=== PATIENT | female | born 1950 | race Caucasian/White ===

== ENCOUNTER 2016-08-17 21:03 | Observation (INO) | payer MEDICARE ==
[~2016-08-17] VITALS: Ht 167.6 cm; Wt 109.0 kg
[~2016-08-17 21:03] MED LIST: ALBU.5I INH; ERGO50000 PO; HYDR10TA16 PO; LIPI40TA PO; OMEP20CA5 PO; OXYB5TAB PO; TAB-TAB PO; TEMA15CA PO
[2016-08-17] MEDS ORDERED: SODIUM CHLORIDE 0.9% FLUSH 10 ML FLUSH IVF PRN (21:15)
[2016-08-17] MEDS ORDERED: RESP: ALBUTEROL 2.5 MG/IPRATROPIUM 0.5 MG NEB (SCH) INH ONE (21:15)
[2016-08-17 21:20] VITALS: BP 106/72; PULSE 98; RESP 24; TEMP 98.1; O2SAT 97
--- NOTE | 2016-08-17 21:20 | PD ---
HPI Chief Complaint: short of breath Time Seen by Provider: 21:15 Travel History International Travel<30 days: No Contact w/Intl Traveler<30days: No Traveled to known affect area: No History of Present Illness HPI 66-year-old female with history of a for lung cancer on hospice is brought into the emergency department via EMS with increasing shortness of breath. Patient is O2 dependent on home O2 of 3 L/m per nasal cannula. Patient was given 100 mg Lasix by the EMS. Patient denies pain, fever, or other constitutional symptoms. Patient states that she did not what to come here but came because her son was concerned. Patient has failed chemotherapy and radiation, and is currently a hospice patient. She denies lower extremity pain or cramping. She currently is speaking in full sentences and has no significant shortness of breath at this time. She has no known drug allergies. 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 ) Pacemaker: No Other Surgery: Yes (BREAST BIOPSY - NEGATIVE) Social History Alcohol Use: No Tobacco Use: No (QUIT JAN 2003) Substance Use: No Allergies-Medications (Allergen,Severity, Reaction): Coded Allergies: No Known Allergies (Verified , 08/17/16) Reported Meds & Prescriptions Reported Meds & Active Scripts Active Reported Lortab 10/500 (Acetaminophen/Hydrocodone Bitart) 10 Mg/500 Mg Tab 1 Tab PO Q4HPRN FOR PAIN Proventil Conc Ud 0.5% (2.5 Mg/0.5 Ml) (Albuterol Sulfate) 2.5 Mg/0.5 Ml Inha 2.5 Mg INH BID Vitamin D / Drisdol (Ergocalciferol) 50,000 Units Cap 1 Cap PO WEEKLY Temazepam 15 Mg Cap 15 Mg PO HSPRN Multivitamin (Multivitamins) 1 Tab Tab 1 Tab PO DAILY Oxybutynin Chloride 5 Mg Tab 10 Mg PO DAILY Prilosec (Omeprazole) 20 Mg Capcr 40 Mg PO DAILY Lipitor (Atorvastatin Calcium) 40 Mg Tab 40 Mg PO DAILY Review of Systems Except as stated in HPI: all other systems reviewed are Neg General / Constitutional: No: Fever Eyes: No: Visual changes HENT: No: Headaches, Sore Throat, Rhinitis, Rhinorrhea, Congestion, Neck Stiffness, Neck Pain, Earache Cardiovascular: No: Chest Pain or Discomfort Respiratory: Positive: Cough, Shortness of Breath, No: Wheezing, Hemoptysis, Night Sweats, Pleuritic Pain Gastrointestinal: No: Nausea, Vomiting, Diarrhea, Abdominal Pain Genitourinary: No: Dysuria Musculoskeletal: No: Pain Skin: No Rash Neurologic: No: Weakness Psychiatric: No: Depression Endocrine: No: Polydipsia Hematologic/Lymphatic: No: Easy Bruising Physical Exam Narrative GENERAL: Patient appears in no acute distress. SKIN: Warm and dry. Mild pallor. Normal turgor. HEAD: Atraumatic. Normocephalic. EYES: Pupils equal and round. No scleral icterus. No injection or drainage. ENT: No nasal bleeding or discharge. Mucous membranes pink and somewhat dry. Pharynx is clear. Airway is patent. NECK: Trachea midline. Supple nontender. CARDIOVASCULAR: Regular rate and rhythm. No murmurs gallops or rubs. RESPIRATORY: No accessory muscle use. Coarse breath sounds to auscultation. Breath sounds equal bilaterally. GASTROINTESTINAL: Abdomen soft, non-tender, nondistended. Hepatic and splenic margins not palpable. MUSCULOSKELETAL: Extremities without clubbing, cyanosis, or 2+ pitting edema bilaterally in the lower extremities. No obvious deformities. NEUROLOGICAL: Awake and alert. No obvious cranial nerve deficits. Motor grossly within normal limits. Five out of 5 muscle strength in the arms and legs. Normal speech. PSYCHIATRIC: Appropriate mood and affect; insight and judgment normal. Data Data Last Documented VS Vital Signs Date Time Temp Pulse Resp B/P Pulse Ox O2 Delivery O2 Flow Rate FiO2 08/17/16 22:23 96 Nasal Cannula 3.00 08/17/16 21:28 90 08/17/16 21:20 98.1 24 106/72 Orders Complete Blood Count With Diff (08/17/16 21:14) Comprehensive Metabolic Panel (08/17/16 21:14) B-Type Natriuretic Peptide (08/17/16 21:14) Urinalysis - C+S If Indicated (08/17/16 21:14) Iv Access Insert/Monitor (08/17/16 21:14) Electrocardiogram (08/17/16 21:14) Ecg Monitoring (08/17/16 21:14) Oximetry (08/17/16 21:14) Oxygen Administration (08/17/16 21:14) Chest, Single Ap (08/17/16 21:14) Sodium Chloride 0.9% Flush (Ns Flush) (08/17/16 21:15) Albuterol-Ipratropium Neb (Duoneb Neb) (08/17/16 21:15) Urine Culture (08/17/16 21:40) ^ Other Nursing Orders (08/17/16 23:02) Resp Respiratory Parameters (08/17/16 ) Potassium Chloride Eff (K-Lyte Cl Eff) (08/17/16 23:15) Potassium Chlor 20 Meq Premix (Kcl 20 Me (08/17/16 23:15) Admit Order (Ed Use Only) (08/17/16 23:05) Labs Laboratory Tests Test 08/17/16 21:40 White Blood Count 11.1 TH/MM3 Red Blood Count 4.01 MIL/MM3 Hemoglobin 12.2 GM/DL Hematocrit 37.1 % Mean Corpuscular Volume 92.4 FL Mean Corpuscular Hemoglobin 30.4 PG Mean Corpuscular Hemoglobin 32.9 % Concent Red Cell Distribution Width 16.2 % Platelet Count 224 TH/MM3 Mean Platelet Volume 8.3 FL Neutrophils (%) (Auto) 86.4 % Lymphocytes (%) (Auto) 8.9 % Monocytes (%) (Auto) 4.4 % Eosinophils (%) (Auto) 0.1 % Basophils (%) (Auto) 0.2 % Neutrophils # (Auto) 9.6 TH/MM3 Lymphocytes # (Auto) 1.0 TH/MM3 Monocytes # (Auto) 0.5 TH/MM3 Eosinophils # (Auto) 0.0 TH/MM3 Basophils # (Auto) 0.0 TH/MM3 CBC Comment DIFF FINAL Differential Comment Urine Color YELLOW Urine Turbidity CLOUDY Urine pH 5.5 Urine Specific [place] 1.015 Urine Protein 30 mg/dL Urine Glucose (UA) NEG mg/dL Urine Ketones NEG mg/dL Urine Occult Blood SMALL Urine Nitrite POS Urine Bilirubin NEG Urine Urobilinogen LESS THAN 2.0 MG/DL Urine Leukocyte Esterase LARGE Urine RBC 57 /hpf Urine WBC /hpf Urine Squamous Epithelial 7 /hpf Cells Urine Transitional Epithelial 1 /hpf Cells Urine Bacteria MANY /hpf Urine Hyaline Casts 159 /lpf Urine Mucus FEW /lpf Urine Yeast (Budding) MANY Microscopic Urinalysis Comment CULTURE INDICATED Sodium Level 132 MEQ/L Potassium Level 2.2 MEQ/L Chloride Level 75 MEQ/L Carbon Dioxide Level GREATER THAN 45.0 MEQ/L Anion Gap 12 MEQ/L Blood Urea Nitrogen 38 MG/DL Creatinine 1.15 MG/DL Estimat Glomerular Filtration 48 ML/MIN Rate Random Glucose 118 MG/DL Calcium Level 8.1 MG/DL Total Bilirubin 0.6 MG/DL Aspartate Amino Transf 38 U/L (AST/SGOT) Alanine Aminotransferase 39 U/L (ALT/SGPT) Alkaline Phosphatase 122 U/L B-Type Natriuretic Peptide 92 PG/ML Total Protein 6.3 GM/DL Albumin 2.6 GM/DL [facility] Medical Decision Making Medical Screen Exam Complete: Yes Emergency Medical Condition: Yes Medical Record Reviewed: Yes Differential Diagnosis Possible pleural effusion. CHF. Shortness of breath secondary to lung cancer. Narrative Course Patient is medically stable at time of exam. Labs ordered including CBC, CMP, pro-BMP, and urinalysis. Patient as arty received 100 mg of Lasix IV prior to arrival. Patient is maintained on 3 L O2 nasal cannula. CBC shows slight leukocytosis of 11.1. Chemistry shows sodium of 132, potassium 2.2, chloride of 75, O2 greater than 45. BUN is 38, creatinine is 1.15, random glucose is 118, calcium is 8.1. AST is 38, alkaline phosphatase is 122, total protein is 6.3 and albumin is 2.8. Urinalysis shows small amount of occult blood and positive nitrites, as well as large leukocyte esterase, 57 RBCs per high-power field and many bacteria and many yeast. Patient has an indwelling catheter. Chest x-ray and EKG are ordered. Chest x-ray shows large left-sided pleural effusion. Patient is discussed with and seen with Dr. Espinal. Dr. Espinal recommends admission and thoracentesis for symptomatic relief as well as treatment of her hyper ketonemia. 2230 hours call was placed to Dr. Iverson discussed the patient for admission. [address] Iverson, but patient's family [facility] hospitalist patient. Call was placed to [facility] hospitalist and patient was discussed with Scott ZHOU. Who agreed to admit the patient. Diagnosis Primary Impression: Pleural effusion Additional Impressions: Hypokalemia Urinary tract infection associated with indwelling urethral catheter Qualified Code: T83.511A - Urinary tract infection associated with indwelling urethral catheter, initial encounter Admitting Information Admitting Physician Requests: Observation Condition: Stable Presley Bynum August 17, 2016 21:20
[2016-08-17 21:28] VITALS: PULSE 90
[2016-08-17 22:08] LABS: AUTOMATED NEUTROPHIL # 9.6 TH/MM3 (1.8-7.7); BASOPHIL % 0.2 % (0.0-2.0); EOSINOPHIL % 0.1 % (0.0-4.0); HEMATOCRIT 37.1 % (35.0-46.0); HEMO FLAGS DIFF FINAL; LYMPH % 8.9 % (9.0-44.0); MEAN CELL VOLUME 92.4 FL (80.0-100.0); MEAN CORPUSCULAR HEMOGLOBIN 30.4 PG (27.0-34.0); MEAN CORPUSCULAR HGB CONC 32.9 % (32.0-36.0); MONO % 4.4 % (0.0-8.0); NEUT % 86.4 % (16.0-70.0); PLATELET COUNT 224 TH/MM3 (150-450); RED BLOOD COUNT 4.01 MIL/MM3 (4.00-5.30); RED CELL DISTRIBUTION WIDTH 16.2 % (11.6-17.2); WHITE BLOOD COUNT 11.1 TH/MM3 (4.0-11.0)
--- NOTE | 2016-08-17 22:13 | RADRPT ---
EXAM DATE/TIME: 08/17/2016 21:25 [facility] COMPARISON: CHEST SINGLE AP, April 30, 2012, 13:27. INDICATIONS : Shortness of breath. MEDICAL HISTORY : Carcinoma, lung. Chronic obstructive pulmonary disease. SURGICAL HISTORY : Pneumonectomy, Infusaport ENCOUNTER: Initial ACUITY: 1 month PAIN SCORE: 4/10 LOCATION: Bilateral chest FINDINGS: A single portable frontal view the chest shows complete opacification left hemithorax. The heart is s hifted towards that side. The right lung is hyperinflated. A right-sided Port-A-Cath noted. No effusi on on the right. CONCLUSION: Prior left pneumonectomy. Clear right lung. Gerardo Bourne Jr., MD on August 17, 2016 at 22:11 Board Certified Radiologist. This report was verified electronically.
[2016-08-17 22:16] LABS: BACTERIA, URINE MANY /hpf; BLOOD, URINE SMALL (NEG); COMMENT (UR) CULTURE INDICATED; CULTURE IF INDICATED CULTURE INDICATED; GLUCOSE,URINE NEG (NEG); HYALINE CAST, URINE 159 /lpf (RARE); KETONE, URINE NEG (NEG); MUCUS URINE FEW /lpf (OCC); PH, URINE 5.5 (5.0-8.5); SQUAMOUS EPITHELIAL CELL URINE 7 /hpf (0-5); TRANSITIONAL EPI CELLS, URINE 1 /hpf; URINE COLOR YELLOW (YELLW/STRAW)
[2016-08-17 22:17] LABS: NITRITE,URINE POS (NEG)
[2016-08-17 22:23] VITALS: O2SAT 96
[2016-08-17 22:29] LABS: ALKALINE PHOSPHATASE 122 U/L (45-117); ALT (GPT) 39 U/L (10-53); ANION GAP 12 MEQ/L (5-15); AST (GOT) 38 U/L (15-37); BICARBONATE GREATER THAN 45.0 MEQ/L (21.0-32.0); BLOOD UREA NITROGEN 38 MG/DL (7-18); CHLORIDE 75 MEQ/L (98-107); GLOMERULAR FILTRATION RATE 48 ML/MIN (>89); SODIUM (NA) 132 MEQ/L (136-145); TOTAL BILIRUBIN ADULT 0.6 MG/DL (0.2-1.0)
[2016-08-17 22:31] LABS: POTASSIUM 2.2 MEQ/L (3.5-5.1)
[2016-08-17] MEDS ORDERED: POTASSIUM CHLORIDE 25 MEQ EFFERVESCENT TAB PO ONE (23:15)
[2016-08-17] MEDS ORDERED: CIPROFLOXACIN 500 MG TAB PO ONE (23:15)
[2016-08-17] MEDS: POTASSIUM CHLOR 20 MEQ PREMIX 100 ML IV SCH (23:44)
[2016-08-17 23:45] VITALS: BP 130/76; PULSE 91; RESP 24; O2SAT 96
[2016-08-18] VITALS (10 sets, daily range): BP systolic 92–131; BP diastolic 46–72; PULSE 65–120; RESP 17–24; TEMP 97–98.6; O2SAT 92–99
[2016-08-18] MEDS ORDERED: SODIUM CHLORIDE 0.9% FLUSH 10 ML FLUSH IV FLUSH PRN (00:30)
[2016-08-18] MEDS: POTASSIUM CHLOR 20 MEQ PREMIX 100 ML IV SCH ×3 (00:30→02:30)
[2016-08-18] MEDS ORDERED: ONDANSETRON HCL 4 MG/2 ML VIAL IVP PRN (00:30)
[2016-08-18] MEDS ORDERED: MAGNESIUM HYDROXIDE SUSP 30 ML CUP PO PRN (00:30)
[2016-08-18] MEDS ORDERED: NALOXONE HCL 0.4 MG/ML AMP IV PRN (00:30)
[2016-08-18] MEDS ORDERED: SENNOSIDES 8.6 MG TAB PO PRN (00:30)
[2016-08-18] MEDS ORDERED: ACETAMINOPHEN 325 MG TAB PO PRN (00:30)
--- NOTE | 2016-08-18 08:26 | RADRPT ---
EXAM DATE/TIME: 08/17/2016 23:53 [facility] COMPARISON: No previous studies available for comparison. INDICATIONS : Pleural effusion. MEDICAL HISTORY : Hypercholesterolemia. Gastroesophageal reflux disease. Myocardial infarction. Ruptured brain aneurysm . Cerebrovascular accident. Congestive heart failure. Chronic obstructive pulmonary disorder. Ulcerat nakia colitis. Metastatic lung cancer. Ectopic . . Arthritis. Depression. Measles. SURGICAL HISTORY : Tubal ligation. section. Gastric bypass. 1/3 lung lobectomy. Right chest port. ENCOUNTER: Initial ACUITY: 1 day PAIN SCORE: 4/10 LOCATION: Left chest MEASUREMENTS: SKIN TO PARIETAL PLEURA: 1.9 cm SKIN TO MAX SAFE DEPTH: 5.4 cm ESTIMATED FLUID VOLUME: 499 cc FLUID COMPOSITION: simple FINDINGS: Pleural effusion as above. A peter was placed on the skin surface superficial to the pleural fluid col lection. CONCLUSION: Left pleural effusion marked for thoracentesis Scott Will MD on August 18, 2016 at 1:36 Board Certified Radiologist. This report was verified electronically.
--- NOTE | 2016-08-18 08:34 | MH ---
cc: MEGHA FINCH MD DATE OF ADMISSION: 08/17/2016 DATE OF : 1950 TRAVEL IN THE LAST 30 DAYS None. CHIEF COMPLAINT Shortness of breath. HISTORY OF PRESENT ILLNESS This is an unfortunate 66-year-old female who is currently on [facility] for management of her lung cancer. The patient started having symptoms of shortness of breath and even though she was not having pain her shortness of breath was causing her undue symptoms. She came to the hospital for symptom management and is currently set up for a drain of her left lung today per interventional radiology. The patient states that she had this done approximately a week ago and did get some relief. The patient denies any extreme pain. She is drowsy but she responds very weakly to verbal stimuli. The patient was given 100 mg of Lasix by EMS. The patient was also noted to be severely hypokalemic and has received multiple IV doses and p.o. dose of potassium which is still infusing. According to the record the patient has failed chemo and radiation treatment. The patient is a DNR/do not intubate. PAST MEDICAL HISTORY According to the record: 1. Hyperlipidemia. 2. History of chest pain. 3. Congestive heart failure. 4. Lung cancer. 5. Depression. 6. CVA in 2002. 7. COPD. 8. GERD. 9. Urinary frequency. 10. Headaches. 11. Hypertension. 12. Ruptured brain aneurysm. 13. Comatose for 39 days in 2002. 14. MO. PAST SURGICAL HISTORY 1. Gastric pass. 2. Cerebral . 3. C-sections x2. 4. Bilateral cataract implants. 5. Breast biopsy. 6. Tubal ligation. ALLERGIES No known allergies. MEDICATIONS 1. Lortab. 2. Proventil. 3. Vitamin-D. 4. Temazepam. 5. Multivitamins. 6. Oxybutynin. 7. Prilosec. 8. Lipitor. SOCIAL HISTORY Previous tobacco user, quit in 2002. No alcohol. No illicit drugs. FAMILY HISTORY The patient does have a son who is involved in her care. REVIEW OF SYSTEMS Minimal response due to lethargy and generalized weakness. She does deny any pain. She is positive for some mild shortness of breath. PHYSICAL EXAMINATION VITAL SIGNS: Temperature 98.3. Pulse labile between 66 and 100. Respirations between 18 and 24. Blood pressure 96/54, on admission 130/76. O2 sat 92; currently on nasal cannula at three liters. PHYSICAL EXAMINATION GENERAL: Pale, lethargic female, looks to be her stated age resting in the bed. SKIN: Very pale, warm and dry. Turgor is fair. HEENT: Atraumatic, normocephalic. No scleral icterus. PERRLA. Mucous membranes are dry and pale. NECK: Trachea is midline. Airway is patent. CARDIOVASCULAR: S1, S2. Distant heart sounds but no murmurs, rubs or gallops. PULMONARY: She does have a minimal amount of rhonchi. The right lung is essentially clear. The left lung has absent to decreased breath sounds. ABDOMEN: Round, soft. Hypoactive bowel sounds. EXTREMITIES: Very weak. Bilateral lower extremity edema, 2-3+. Some generalized edema in her upper extremities, trace to 1+. : Garay catheter draining yellow cloudy urine. NEUROLOGIC: She is very drowsy and lethargic but does respond softly to verbal stimuli. PSYCHIATRIC: Mood and affect is flat. Judgment appears to be normal. LABORATORY WBC count 11.1, RBC 4.01, hemoglobin 12.2, hematocrit 37.1. Neutrophil percentage auto 86.4, lymphocyte 8.9. Sodium 132, potassium 2.2, chloride 75, carbon dioxide greater than 45, amnion gap 12, BUN 38, creatinine 1.15, GFR 48, random glucose 118, calcium 8.1, magnesium 1.7. AST 38, alkaline phosphatase 122, total protein 6.3, albumin 2.6. Urine is yellow, cloudy, pH 5.5, specific gravity 1.015, protein 30, positive nitrites, small occult blood, negative glucose, negative ketones and bilirubin, many bacteria, leukocyte esterase large, urobilinogen less than 2. Culture is indicated. IMAGING Chest x-ray shows clear on the right, prior left pneumonectomy. ASSESSMENT 1. Left pleural effusion. 2. History of lung cancer. 3. Hypokalemia, severe. 4. Urinary tract infection. 5. Acute kidney injury, mild, which is probable dehydration. 6. Leukocytosis, mild. PLAN 1. Admit for observation. 2. Monitor vital signs q.4h. 3. Out of bed only with assistance. 4. Regular diet if patient is able to tolerate after any procedures. 5. Ultrasound-guided thoracentesis to assist in her symptoms of shortness of breath. 6. IV potassium and p.o. potassium given. After those doses are complete will recheck her potassium level. 7. The patient received p.o. Cipro for treatment of her UTI. 8. O2 per nasal cannula. 9. Albuterol one time was given in the emergency room. 10. Will reconcile her medications. 11. Monitor for pain management. 12. Follow-up with [facility] for a social visit and an update on her symptom management. 13. The patient is a DNR/DNI. 14. Will give her and her family supportive care during this brief stay, and discharge planning will hopefully be back with Hospice within a short period of time after her symptoms are managed. Dictated by: ISH Harding MD LISSETTE Dc/KRISTOFER /7:49 AM /8:08 AM
--- NOTE | 2016-08-18 08:55 | EKG ---
Date Performed: 08/18/2016 Time Performed: 00:49:49 PTAGE: 66 years EKG: SINUS TACHYCARDIA WITH FREQUENT VENTRICULAR PREMATURE COMPLEXES INDETERMINATE AXIS LOW QRS VOLTAGE IN PRECORDIAL LEADS INCOMPLETE RIGHT BUNDLE BRANCH BLOCK NONSPECIFIC T-WAVE ABNORMALITY ABNOR MAL RHYTHM ECG PREVIOUS TRACING : 04/19/2012 11.20 DOCTOR: Tavo Horan Interpretating Date/Time 08/18/2016 08:53:15
[2016-08-18] MEDS ORDERED: CIPROFLOXACIN 500 MG TAB PO SCH (09:00)
[2016-08-18] MEDS ORDERED: SODIUM CHLORIDE 0.9% FLUSH 10 ML FLUSH IV FLUSH SCH (09:00)
--- NOTE | 2016-08-18 13:47 | HHI.PR ---
Objective Objective Results - Vital Signs Date Time Temp Pulse Resp B/P Pulse Ox O2 Delivery O2 Flow Rate FiO2 08/18/16 11:51 98.0 93 17 92/46 95 08/18/16 07:44 93 Nasal Cannula 3.00 08/18/16 07:24 98.3 100 20 96/54 92 08/18/16 04:33 98.6 66 18 108/64 97 08/18/16 02:08 98.5 89 18 113/59 92 08/17/16 23:45 91 24 130/76 96 Nasal Cannula 3 08/17/16 22:23 96 Nasal Cannula 3.00 08/17/16 21:28 90 08/17/16 21:28 97 Nasal Cannula 3 08/17/16 21:20 98.1 98 24 106/72 97 I/O 08/17/16 08/17/16 08/17/16 08/18/16 08/18/16 08/18/16 07:00 15:00 23:00 07:00 15:00 23:00 Intake Total 200 ml Balance 200 ml Intake Oral 200 ml Result Diagram: 08/17/16213908/[id number]/162139 Other Results Laboratory Tests Test 08/17/16 08/18/16 08/18/16 21:40 10:20 12:42 White Blood Count 11.1 Red Blood Count 4.01 Hemoglobin 12.2 Hematocrit 37.1 Mean Corpuscular Volume 92.4 Mean Corpuscular Hemoglobin 30.4 Mean Corpuscular Hemoglobin 32.9 Concent Red Cell Distribution Width 16.2 Platelet Count 224 Mean Platelet Volume 8.3 Neutrophils (%) (Auto) 86.4 Lymphocytes (%) (Auto) 8.9 Monocytes (%) (Auto) 4.4 Eosinophils (%) (Auto) 0.1 Basophils (%) (Auto) 0.2 Neutrophils # (Auto) 9.6 Lymphocytes # (Auto) 1.0 Monocytes # (Auto) 0.5 Eosinophils # (Auto) 0.0 Basophils # (Auto) 0.0 CBC Comment DIFF FINAL Differential Comment Urine Color YELLOW Urine Turbidity CLOUDY Urine pH 5.5 Urine Specific [place] 1.015 Urine Protein 30 Urine Glucose (UA) NEG Urine Ketones NEG Urine Occult Blood SMALL Urine Nitrite POS Urine Bilirubin NEG Urine Urobilinogen LESS THAN 2.0 Urine Leukocyte Esterase LARGE Urine RBC 57 Urine WBC Urine Squamous Epithelial 7 Cells Urine Transitional Epithelial 1 Cells Urine Bacteria MANY Urine Hyaline Casts 159 Urine Mucus FEW Urine Yeast (Budding) MANY Microscopic Urinalysis Comment CULTURE INDICATED Sodium Level 132 Potassium Level 2.2 Chloride Level 75 Carbon Dioxide Level GREATER THAN 45.0 Anion Gap 12 Blood Urea Nitrogen 38 Creatinine 1.15 Estimat Glomerular Filtration 48 Rate Random Glucose 118 Calcium Level 8.1 Total Bilirubin 0.6 Aspartate Amino Transf 38 (AST/SGOT) Alanine Aminotransferase 39 (ALT/SGPT) Alkaline Phosphatase 122 B-Type Natriuretic Peptide 92 Total Protein 6.3 Albumin 2.6 Magnesium Level 1.7 1.7 Prothrombin Time 11.0 Prothromb Time International 1.0 Ratio Date/Time Procedure Status Source Growth 08/17/16 21:40 Urine Culture Received Urine Clean Catch Pending Physical Exam Physical Exam PHYSICAL EXAMINATION GENERAL: This is a well-developed, well-nourished female who appears to be in no acute distress. She is alert and awake, []. HEAD: Normocephalic without any lesion or mass noted. Facial features appear symmetric. EYES: Perrla, Normal eye movement, [] Icterus. [] Conj congestion. OROPHARYNGEAL: Oropharynx without erythema or edema. MOUTH/THROAT: Tongue midline []. Buccal mucosa is moist []. NECK: Supple. No nuchal rigidity or lymphadenopathy. Trachea midline without deviation. Thyroid not palpable, no bruits appreciated. CARDIAC: Regular rhythm, regular rate, S1 and S2 are heard. Murmur []; no gallops or rubs. LUNGS: Clear to auscultation bilaterally. [] wheeze, [] rhonchi or [] rale. No use of accessory muscles on inspiration or expiration. ABDOMEN: Soft, nontender, no organomegaly or masses. Bowel sounds are heard in all four quadrants. No rebound. No guarding. EXTREMITIES: [] edema. Pulses equal bilateral. [] cyanosis. NEUROLOGICAL: Patient mood and affect appropriate. Cranial nerves II through XII grossly intact. Muscle strength 5/5 in the upper and lower extremities bilaterally. Deep tendon reflexes are 2+ in the upper and lower extremities bilaterally. SKIN:Warm and moist PSYCH: Mood and affect appropriate A/P Assessment and Plan patient seen and examined Please refer to admission H & P for details 66 yr old female with stage 4 lung cancer, on hospice admitted with SOB, likely sec to left pleural effusion. Patient appears comfortable. plan for IR guided thoracentesis and then discharge to inpatient hospice or hospice care center. Hospice following discussed with patient's nurse, correctional case manager and Martina Moreland MD August 18, 2016 13:47
--- NOTE | 2016-08-18 15:44 | RADRPT ---
EXAM DATE/TIME: 08/18/2016 15:20 [facility] COMPARISON: No previous studies available for comparison. INDICATIONS : Post thoracentesis. MEDICAL HISTORY : Hypercholesterolemia. Gastroesophageal reflux disease. Myocardial infarction. Ruptured brain aneurysm . Cerebrovascular accident. Congestive heart failure. Chronic obstructive pulmonary disorder. Ulcerat nakia colitis. Metastatic lung cancer. SURGICAL HISTORY : Tubal ligation. section. Gastric bypass. 1/3 lung lobectomy. Right chest port. ENCOUNTER: Initial ACUITY: 1 day PAIN SCORE: 10/10 LOCATION: Left chest FINDINGS: There is consolidation in the left base. There is no pneumothorax. The right lung is clear. Infuse -a-Port is in good position. CONCLUSION: Persistent consolidation left base without pneumothorax. Sunny Barbosa MD FACR on August 18, 2016 at 15:39 Board Certified Radiologist. This report was verified electronically.
--- NOTE | 2016-08-18 16:56 | RADRPT ---
EXAM DATE/TIME: 08/18/2016 14:22 [facility] COMPARISON: No previous studies available for comparison. INDICATIONS : Pleural effusion. MEDICAL HISTORY : Myocardial infarction. Hypercholesterolemia. Congestive heart failure. CVA. Headache. Brain aneurysm. Dyspnea. Ulcer. IBS. Ulcerative colitis. GERD. Lung cancer. SURGICAL HISTORY : Tubal ligation. Bilateral cataract surgery. Coils brain due to aneurysm. Gastric bypass. D&C uteria n. Lung BX. Port placement. Breast BX. ENCOUNTER: Initial ACUITY: 1 day PAIN SCORE: 0/10 LOCATION: Left chest FLUID: Total volume of 1200 cc of clear, red fluid was removed. Fluid was discarded. Thoracentesis was therapeutic only. TECHNIQUE: 1. Ultrasound guidance for thoracentesis. 2. Thoracentesis. The risks, benefits, and alternatives to ultrasound guided thoracentesis were explained to the patien t in lay simple terms, including the risk of bleeding and infection. Written and verbal informed con sent was obtained. Appropriate area for thoracentesis was marked under ultrasound guidance with the patient in the uprig ht position. Overlying skin was prepped and draped in the usual sterile fashion and with local anest hetic, a dermatotomy was made with an 11 blade scalpel. A 6 Bengali thoracentesis catheter was placed in the pleural space and fluid was removed. Catheter was then removed and a sterile dressing applie d. There were no immediate complications. The patient tolerated the procedure well and the left the ultrasound suite in stable condition. Chest radiograph is to be obtained. CONCLUSION: Uncomplicated ultrasound guided thoracentesis. Sunny Barbosa MD FACR on August 18, 2016 at 16:54 Board Certified Radiologist. This report was verified electronically.
--- NOTE | 2016-08-18 18:29 | HHI.DS ---
Discharge Summary Admission Date August 17, 2016 at 23:07 Admitting Diagnosis Pleural Effusion/Hypokalemia/Stage 4 CA CBC/BMP: 08/17/16213908/17/162139 Significant Findings Laboratory Tests Test 08/17/16 21:40 Sodium Level 132 MEQ/L (136-145) Potassium Level 2.2 MEQ/L (3.5-5.1) Chloride Level 75 MEQ/L (98-107) Carbon Dioxide Level GREATER THAN 45.0 MEQ/L (21.0-32.0) Blood Urea Nitrogen 38 MG/DL (7-18) Creatinine 1.15 MG/DL (0.50-1.00) Estimat Glomerular Filtration 48 ML/MIN (>89) Rate Random Glucose 118 MG/DL (74-106) Calcium Level 8.1 MG/DL (8.5-10.1) Aspartate Amino Transf 38 U/L (15-37) (AST/SGOT) Alkaline Phosphatase 122 U/L (45-117) Total Protein 6.3 GM/DL (6.4-8.2) Albumin 2.6 GM/DL (3.4-5.0) White Blood Count 11.1 TH/MM3 (4.0-11.0) Neutrophils (%) (Auto) 86.4 % (16.0-70.0) Lymphocytes (%) (Auto) 8.9 % (9.0-44.0) Neutrophils # (Auto) 9.6 TH/MM3 (1.8-7.7) Urine Turbidity CLOUDY (CLEAR) Urine Protein 30 mg/dL (NEG-TRACE) Urine Occult Blood SMALL (NEG) Urine Nitrite POS (NEG) Urine Leukocyte Esterase LARGE (NEG) Urine RBC 57 /hpf (0-3) Urine Bacteria MANY /hpf (NONE) Urine Mucus FEW /lpf (OCC) Urine Yeast (Budding) MANY (NONE) Imaging Last Impressions Thoracentesis Ultrasound 08/18/16 0000 Signed Impressions: Service Date/Time: Thursday, August 18, 2016 14:22 - CONCLUSION: Uncomplicated ultrasound guided thoracentesis. Sunny Barbosa MD FACR Chest X-Ray 08/18/16 0000 Signed Impressions: Service Date/Time: Thursday, August 18, 2016 15:20 - CONCLUSION: Persistent consolidation left base without pneumothorax. Sunny Barbosa MD FACR Chest Ultrasound 08/17/16 0000 Signed Impressions: Service Date/Time: Wednesday, August 17, 2016 23:53 - CONCLUSION: Left pleural effusion marked for thoracentesis Scott Will MD Pt Condition on Discharge: Stable Discharge Disposition: Hospice/Med Facility Discharge Instructions DIET: Follow Instructions for: As Tolerated, No Restrictions Activities you can perform: Regular-No Restrictions Continued Medications: Albuterol Sulfate (Proventil Conc Ud 0.5% (2.5 Mg/0.5 Ml)) 2.5 Mg/0.5 Ml Inha 2.5 MG INH BID Ergocalciferol 50,000 Units (Vitamin D / Drisdol 50,000 Units) 50,000 Units Cap 1 CAP PO WEEKLY Multiple Vitamin (Multivitamin) 1 Tab Tab 1 TAB PO DAILY Omeprazole 20 mg (Prilosec 20 mg) 20 Mg Capcr 40 MG PO DAILY Oxybutynin Chloride (Oxybutynin Chloride Er) 5 Mg Tab 10 MG PO DAILY Temazepam (Temazepam) 15 Mg Cap 15 MG PO HSPRN Discontinued Medications: Atorvastatin Calcium (Lipitor) 40 Mg Tab 40 MG PO DAILY Ref 0 Hydrocodone-Acetaminophen (Lortab 10/500) 10 Mg/500 Mg Tab 1 TAB PO Q4HPRN FOR PAIN Janessa Robin August 18, 2016 18:29
== END 2016-08-18 19:00 | disposition hospice, inpatient (51) ==
LOC: NEPC 21:03 → NEDA 23:07 → NEPGCP 08-18 01:33
PROVIDERS: ADMIT Internal Medicine; ATTEND Internal Medicine
DX: J90 Pleural effusion, not elsewhere classified (principal); C34.90 Malignant neoplasm of unspecified part of unspecified bronchus or lung; D72.829 Elevated white blood cell count, unspecified; N39.0 Urinary tract infection, site not specified; N17.9 Acute kidney failure, unspecified; I25.2 Old myocardial infarction; E78.00 Pure hypercholesterolemia, unspecified; I11.0 Hypertensive heart disease with heart failure; I50.9 Heart failure, unspecified; K21.9 Gastro-esophageal reflux disease without esophagitis; M19.90 Unspecified osteoarthritis, unspecified site; F32.9 Major depressive disorder, single episode, unspecified; J44.9 Chronic obstructive pulmonary disease, unspecified; E87.6 Hypokalemia; E78.5 Hyperlipidemia, unspecified; Z87.891 Personal history of nicotine dependence; Z86.73 Personal history of transient ischemic attack (TIA), and cerebral infarction without residual deficits; Z98.84 Bariatric surgery status; Z66 Do not resuscitate; Z99.81 Dependence on supplemental oxygen
CPT/HCPCS: 32555; 71010; 76604; 80053; 81001; 83735; 83880; 85025; 85610; 87077; 87086; 87186; 93005; 94664; 99285; C1729; G0378; J3010; J3480

== ENCOUNTER 2016-09-04 07:30 | Inpatient (IN) | payer OTHER, MEDICARE ==
[~2016-09-04] VITALS: Ht 167.6 cm; Wt 91.3 kg
[2016-09-04] VITALS (12 sets, daily range): BP systolic 106–121; BP diastolic 60–80; PULSE 55–120; RESP 3–28; TEMP 97.7–98.4; O2SAT 94–99
[~2016-09-04 07:30] MED LIST changes: -HYDR10TA16 PO; -LIPI40TA PO
[2016-09-04] MEDS ORDERED: SODIUM CHLORIDE 0.9% FLUSH 10 ML FLUSH IVF PRN (07:45)
--- NOTE | 2016-09-04 07:47 | PD ---
HPI Chief Complaint: Respiratory Distress Time Seen by Provider: 07:39 Travel History International Travel<30 days: No Contact w/Intl Traveler<30days: No Traveled to known affect area: No History of Present Illness HPI 66-year-old female with history of multiple medical issues, previous history of lung cancer with pleural effusion drained last week at [facility], presents to the ER today for increased shortness of breath and disorientation. She is barely answering questions currently, is and mild respiratory distress. Modifying Factors: None Associated Signs & Symptoms: Respiratory distress, altered mental status Risk Factors: Previous history of pleural effusion, lung cancer PFSH Past Medical History Arthritis: Yes Asthma: No Blood Disorders: No Anxiety: No Depression: No Heart Rhythm Problems: No Cancer: No Cardiovascular Problems: No High Cholesterol: No Chemotherapy: No Chest Pain: No Congestive Heart Failure: No COPD: No Cerebrovascular Accident: Yes (2002) Diabetes: No Endocrine: No Gastrointestinal Disorders: No GERD: Yes Genitourinary: No Headaches: Yes Hypertension: No Immune Disorder: No Implanted Vascular Access Dvce: No Musculoskeletal: Yes (weak in lower extremities, fatigued) Neurologic: No Psychiatric: No Reproductive: No Respiratory: No Immunizations Current: Yes Myocardial Infarction: Yes (2002) Radiation Therapy: No Sleep Apnea: No Thyroid Disease: No Ulcer: Yes ?: Not Menopausal: Yes : 5 Para: 2 : 3 Ectopic : Yes Tubal Ligation: Yes (1984) Past Surgical History Abdominal Surgery: Yes (GASTRIC BYPASS) Body Medical Devices: CEREBRAL COIL Section: Yes (2 CHILDREN) Eye Surgery: Yes ([facility]WSON. 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 ) Pacemaker: No Other Surgery: Yes (lung biopsy) Social History Alcohol Use: No Tobacco Use: No (quit 1982) Substance Use: No Allergies-Medications (Allergen,Severity, Reaction): Coded Allergies: *MDRO Multi-Drug Resistant Organism (Verified Adverse Reaction, Unknown, ESBL, 08/20/16) ESBL (urine) - 08/17/16 Reported Meds & Prescriptions Reported Meds & Active Scripts Active Reported Prilosec (Omeprazole Magnesium) 20 Mg Tab Ativan (Lorazepam) 0.5 Mg Tab 0.5 Mg PO Q4H PRN Duoneb (Ipratropium-Albuterol Neb) 0.5-2.5 Mg/3 Ml Neb 1 Nebule INH DAILY [place] (Hydrocodone-Acetaminophen) 5-325 mg Tab 1 Tab PO Q4H PRN Furosemide 20 Mg Tab 20 Mg PO DAILY Aspirin 81 Mg Chew 81 Mg CHEW DAILY Review of Systems Except as stated in HPI: all other systems reviewed are Neg Physical Exam Narrative GENERAL: Well-developed elderly white female patient currently in mild respiratory distress. Lethargic and disoriented. SKIN: Focused skin assessment warm/dry. HEAD: Atraumatic. Normocephalic. EYES: Pupils equal and round. No scleral icterus. No injection or drainage. ENT: No nasal bleeding or discharge. Mucous membranes pink and moist. NECK: Trachea midline. No JVD. CARDIOVASCULAR: Regular rate and rhythm. No murmur appreciated. RESPIRATORY: Mild accessory muscle use. Decreased at the bases, bilateral rails. That sounds decreased on the left compared to the right. GASTROINTESTINAL: Abdomen soft, non-tender, nondistended. Hepatic and splenic margins not palpable. MUSCULOSKELETAL: No obvious deformities. No clubbing. No cyanosis. No edema. NEUROLOGICAL: Awake and alert. No obvious cranial nerve deficits. Motor grossly within normal limits. Normal speech. PSYCHIATRIC: Appropriate mood and affect; insight and judgment normal. Data Data Last Documented VS Vital Signs Date Time Temp Pulse Resp B/P Pulse Ox O2 Delivery O2 Flow Rate FiO2 09/04/16 09:09 115 28 113/76 99 Nasal Cannula 3 09/04/16 07:38 97.7 Orders Electrocardiogram (09/04/16 ) Complete Blood Count With Diff (09/04/16 07:39) Comprehensive Metabolic Panel (09/04/16 07:39) B-Type Natriuretic Peptide (09/04/16 07:39) Act Partial Throm Time (Ptt) (09/04/16 07:39) Prothrombin Time / Inr (Pt) (09/04/16 07:39) Ckmb (Isoenzyme) Profile (09/04/16 07:39) Troponin I (09/04/16 07:39) Arterial Blood Gas (Abg) (09/04/16 07:39) Iv Access Insert/Monitor (09/04/16 07:39) Electrocardiogram (09/04/16 07:39) Ecg Monitoring (09/04/16 07:39) Oximetry (09/04/16 07:39) Oxygen Administration (09/04/16 07:39) Chest, Single Ap (09/04/16 07:39) Sodium Chloride 0.9% Flush (Ns Flush) (09/04/16 07:45) Resp Bipap / Cpap Non Invas Vt (09/04/16 07:39) Invasive Rad Dept Consult (09/04/16 ) Isolation 08,20 (09/04/16 08:15) Us Guided Thoracentesis (09/04/16 ) Ns + Kcl 40 Meq Inj (Ns + Kcl 40 Meq Inj (09/04/16 09:00) Admit Order (Ed Use Only) (09/04/16 09:00) Labs Laboratory Tests Test 09/04/16 09/04/16 07:50 08:00 White Blood Count 12.2 TH/MM3 Red Blood Count 3.59 MIL/MM3 Hemoglobin 10.9 GM/DL Hematocrit 33.7 % Mean Corpuscular Volume 93.8 FL Mean Corpuscular Hemoglobin 30.2 PG Mean Corpuscular Hemoglobin 32.2 % Concent Red Cell Distribution Width 15.7 % Platelet Count 113 TH/MM3 Mean Platelet Volume 7.8 FL Neutrophils (%) (Auto) 88.3 % Lymphocytes (%) (Auto) 7.2 % Monocytes (%) (Auto) 4.4 % Eosinophils (%) (Auto) 0.0 % Basophils (%) (Auto) 0.1 % Neutrophils # (Auto) 10.8 TH/MM3 Lymphocytes # (Auto) 0.9 TH/MM3 Monocytes # (Auto) 0.5 TH/MM3 Eosinophils # (Auto) 0.0 TH/MM3 Basophils # (Auto) 0.0 TH/MM3 CBC Comment AUTO DIFF Differential Total Cells 100 Counted Neutrophils % (Manual) 83 % Band Neutrophils % 5 % Lymphocytes % 8 % Monocytes % 4 % Neutrophils # (Manual) 10.7 TH/MM3 Differential Comment FINAL DIFF MANUAL Platelet Estimate LOW Platelet Morphology Comment NORMAL Prothrombin Time 11.3 SEC Prothromb Time International 1.0 RATIO Ratio Activated Partial 23.8 SEC Thromboplast Time Sodium Level 127 MEQ/L Potassium Level 2.7 MEQ/L Chloride Level 68 MEQ/L Carbon Dioxide Level GREATER THAN 45.0 MEQ/L Anion Gap 14 MEQ/L Blood Urea Nitrogen 32 MG/DL Creatinine 0.55 MG/DL Estimat Glomerular Filtration 111 ML/MIN Rate Random Glucose 89 MG/DL Calcium Level 7.8 MG/DL Total Bilirubin 0.7 MG/DL Aspartate Amino Transf 29 U/L (AST/SGOT) Alanine Aminotransferase 43 U/L (ALT/SGPT) Alkaline Phosphatase 155 U/L Total Creatine Kinase 19 U/L Troponin I 0.02 NG/ML B-Type Natriuretic Peptide 97 PG/ML Total Protein 5.6 GM/DL Albumin 2.1 GM/DL Blood Gas Puncture Site RT RADIAL Blood Gas Patient Temperature 98.6 Blood Gas HCO3 55 mmol/L Blood Gas Base Excess 28.6 mmol/L Blood Gas Oxygen Saturation 92 % Arterial Blood pH 7.52 Arterial Blood Partial 68 mmHg Pressure CO2 Arterial Blood Partial 71 mmHG Pressure O2 Arterial Blood Oxygen Content 14.5 Vol % Arterial Blood 0.9 % Carboxyhemoglobin Arterial Blood Methemoglobin 1.4 % Blood Gas Hemoglobin 11.1 G/DL Oxygen Delivery Device NASAL CANNULA Blood Gas Liter Flow 3 L/M MDM Medical Decision Making Medical Screen Exam Complete: Yes Emergency Medical Condition: Yes Medical Record Reviewed: Yes Interpretation(s) EKG shows sinus tachycardia at a rate of 117 bpm. No signs of acute ST changes. Last 24 hours Impressions Chest X-Ray 09/04/16 0739 Signed Impressions: Service Date/Time: Tuesday, September 04, 2016 07:41 - CONCLUSION: Complete opacification of the left hemithorax. This is likely secondary to a pleural effusion with some degree of atelectasis and/or airspace consolidation. Small right pleural effusion is also suspected. Scott Latham MD Laboratory Tests Test 09/04/16 09/04/16 07:50 08:00 White Blood Count 12.2 TH/MM3 (4.0-11.0) Red Blood Count 3.59 MIL/MM3 (4.00-5.30) Hemoglobin 10.9 GM/DL (11.6-15.3) Hematocrit 33.7 % (35.0-46.0) Platelet Count 113 TH/MM3 (150-450) Neutrophils (%) (Auto) 88.3 % (16.0-70.0) Lymphocytes (%) (Auto) 7.2 % (9.0-44.0) Neutrophils # (Auto) 10.8 TH/MM3 (1.8-7.7) Lymphocytes # (Auto) 0.9 TH/MM3 (1.0-4.8) Activated Partial 23.8 SEC Thromboplast Time (24.3-30.1) Sodium Level 127 MEQ/L (136-145) Potassium Level 2.7 MEQ/L (3.5-5.1) Chloride Level 68 MEQ/L (98-107) Carbon Dioxide Level GREATER THAN 45.0 MEQ/L (21.0-32.0) Blood Urea Nitrogen 32 MG/DL (7-18) Calcium Level 7.8 MG/DL (8.5-10.1) Alkaline Phosphatase 155 U/L (45-117) Total Creatine Kinase 19 U/L (26-192) Total Protein 5.6 GM/DL (6.4-8.2) Albumin 2.1 GM/DL (3.4-5.0) Blood Gas HCO3 55 mmol/L (22-26) Blood Gas Base Excess 28.6 mmol/L (-2-2) Arterial Blood pH 7.52 (7.380-7.420) Arterial Blood Partial 68 mmHg (38-42) Pressure CO2 Blood Gas Hemoglobin 11.1 G/DL (12.0-16.0) Differential Diagnosis Shortness of breathCHF versus pleural effusion versus pneumonia Narrative Course Chest x-rays concerning for a new left-sided pleural effusion especially with history. Lab work shows hypokalemia. At this point, case had been discussed with radiologist and planned for pleurocentesis for treatment. She will get potassium replacement. Plan to admit for further treatment. This was discussed with Dr. Sims for admission. Diagnosis Primary Impression: Hypokalemia Additional Impression: Pleural effusion Admitting Information Admitting Physician Requests: it Kulwant Enamorado MD Sep 04, 2016 07:47
[2016-09-04] MEDS ORDERED: FURO20TA PO (07:58)
[2016-09-04] MEDS ORDERED: PRIL20TA2 (07:58)
[2016-09-04] MEDS ORDERED: ASPI81CH CHEW (07:58)
[2016-09-04] MEDS ORDERED: NORC5TAB PO (07:58)
[2016-09-04] MEDS ORDERED: IPRASOL INH (07:58)
[2016-09-04] MEDS ORDERED: LORA-392 PO (07:58)
[2016-09-04 08:01] LABS: AUTOMATED NEUTROPHIL # 10.8 TH/MM3 (1.8-7.7); BASOPHIL % 0.1 % (0.0-2.0); HEMATOCRIT 33.7 % (35.0-46.0); LYMPH % 7.2 % (9.0-44.0); LYMPHOCYTE # 0.9 TH/MM3 (1.0-4.8); MEAN CELL VOLUME 93.8 FL (80.0-100.0); MEAN CORPUSCULAR HEMOGLOBIN 30.2 PG (27.0-34.0); MEAN CORPUSCULAR HGB CONC 32.2 % (32.0-36.0); MONO % 4.4 % (0.0-8.0); NEUT % 88.3 % (16.0-70.0); PLATELET COUNT 113 TH/MM3 (150-450); RED BLOOD COUNT 3.59 MIL/MM3 (4.00-5.30); RED CELL DISTRIBUTION WIDTH 15.7 % (11.6-17.2); WHITE BLOOD COUNT 12.2 TH/MM3 (4.0-11.0)
[2016-09-04 08:03] LABS: BLOOD GAS BASE EXCESS 28.6 mmol/L (-2-2); BLOOD GAS CARBOXYHEMOGLOBIN 0.9 % (0-4); BLOOD GAS HCO3 55 mmol/L (22-26); BLOOD GAS METHEMOGLOBIN 1.4 % (0-2); BLOOD GAS O2 HGB SATURATION 92 % (90-100); BLOOD GAS OXYGEN CONTENT 14.5 Vol % (12.0-20.0); BLOOD GAS PCO2 68 mmHg (38-42); BLOOD GAS PO2 71 mmHG (61-120); BLOOD GAS TOTAL HGB 11.1 G/DL (12.0-16.0); TEMP CORR TO 98.6
[2016-09-04 08:04] LABS: CRITICAL VALUE YES; DRAW SITE RT RADIAL; LITER FLOW 3 L/M; NUMBER OF ARTERIAL PUNCTURES 1; OXYGEN DEVICE NASAL CANNULA; STAT YES; ULNAR PULSE Y
[2016-09-04 08:06] LABS: HEMO FLAGS AUTO DIFF
--- NOTE | 2016-09-04 08:14 | RADRPT ---
EXAM DATE/TIME: 09/04/2016 07:41 [facility] COMPARISON: CHEST SINGLE AP, April 30, 2012, 13:27. CHEST EXPIRATION ONLY, August 18, 2016, 15:20. US GUIDED TH ORACENTESIS LEFT, August 18, 2016, 14:22. CHEST SINGLE AP, August 17, 2016, 21:25. INDICATIONS : Short of breath with congestion. MEDICAL HISTORY : Hypercholesterolemia. Myocardial infarction. Congestive heart failure. cva aneurysm brain SURGICAL HISTORY : Tubal ligation. cataracts ENCOUNTER: Initial ACUITY: 1 week PAIN SCORE: Non-responsive. LOCATION: Bilateral upper chest FINDINGS: 2 portable AP views of the chest demonstrate a right chest wall Hovnhv-a-Heuy in place. There is comp lete opacification of the left hemithorax without signs of volume loss. Clips overlie the left superi or hemithorax. There is small right basilar pleural-parenchymal opacity. No pneumothorax is present. Bones demonstrate no acute finding. CONCLUSION: Complete opacification of the left hemithorax. This is likely secondary to a pleural effusion with so me degree of atelectasis and/or airspace consolidation. Small right pleural effusion is also suspecte d. Scott Latham MD on September 04, 2016 at 8:08 Board Certified Radiologist. This report was verified electronically.
[2016-09-04 08:16] LABS: APTT (PATIENT) 23.8 SEC (24.3-30.1); PROTHROMBIN TIME - PATIENT 11.3 SEC (9.8-11.6)
[2016-09-04 08:48] LABS: ALKALINE PHOSPHATASE 155 U/L (45-117); ALT (GPT) 43 U/L (10-53); AST (GOT) 29 U/L (15-37); BLOOD UREA NITROGEN 32 MG/DL (7-18); CHLORIDE 68 MEQ/L (98-107); GLOMERULAR FILTRATION RATE 111 ML/MIN (>89); SODIUM (NA) 127 MEQ/L (136-145); TOTAL BILIRUBIN ADULT 0.7 MG/DL (0.2-1.0)
[2016-09-04 08:50] LABS: ANION GAP 14 MEQ/L (5-15); BICARBONATE GREATER THAN 45.0 MEQ/L (21.0-32.0); CREATINE KINASE 19 U/L (26-192)
[2016-09-04 08:51] LABS: POTASSIUM 2.7 MEQ/L (3.5-5.1)
[2016-09-04 08:59] LABS: BANDS 5 % (0-6); NEUTROPHIL # MANUAL DIFF 10.7 TH/MM3 (1.8-7.7); PLATELET ESTIMATE SMEAR LOW (NORMAL); PLATELET MORPHOLOGY NORMAL (NORMAL); POLYS (SEG NEUTROPHILS) 83 % (16-70); SCAN/DIFF FINAL DIFF MANUAL; WBC DIFF SAMPLE 100
[2016-09-04] MEDS: NS + KCL 40 MEQ INJ 1,000 ML IV SCH ×2 (09:07→14:16)
[2016-09-04] MEDS ORDERED: LIDOCAINE HCL 1% 20 ML VIAL ONE (10:40)
[2016-09-04] MEDS ORDERED: LORazepam 0.5 MG TAB PO PRN (11:30)
[2016-09-04] MEDS ORDERED: ACETAMINOPHEN/HYDROcodone 325 MG/5 MG TAB PO PRN (11:30)
[2016-09-04] MEDS ORDERED: MORPHINE SULFATE 4 MG/ML INJ IV PUSH PRN (11:45)
--- NOTE | 2016-09-04 11:49 | PD.RAD ---
Post Procedure Progress Note Pre Procedure Diagnosis: (1) Pleural effusion Post Procedure Diagnosis: (1) Pleural effusion Procedure Date: Sep 04, 2016 Supervising Radiologist: Ap Barbosa Anesthesia: Local Plan of Activity Patient to Unit: Other Patient Condition: Critical Additional Comments: Pt. post ct guided left thoracentesis. 1.2 liters of fluid removed. CXR pending. If fluid recurs PT would likely benefit from Aspira drainage catheter placement. See PACS Report for procedural detail/treatment Ap Barbosa MD Sep 04, 2016 11:49
[2016-09-04] MEDS: RESP: ALBUTEROL 2.5 MG/IPRATROPIUM 0.5 MG NEB (SCH) NEB ×3 (12:00→19:53)
[2016-09-04] MEDS ORDERED: POTASSIUM CHLORIDE 10 MEQ CONTROLLED RELEASE TAB PO ONE (12:45)
--- NOTE | 2016-09-04 13:02 | EKG ---
Date Performed: 09/04/2016 Time Performed: 07:41:10 PTAGE: 66 years EKG: SINUS TACHYCARDIA WITH OCCASIONAL VENTRICULAR PREMATURE COMPLEXES INDETERMINATE AXIS LOW QR S VOLTAGE IN PRECORDIAL LEADS INCOMPLETE RIGHT BUNDLE BRANCH BLOCK ST DEVIATION AND MODERATE T-WAVE A BNORMALITY, CONSIDER ANTERIOR ISCHEMIA ABNORMAL ECG PREVIOUS TRACING : 08/18/2016 00.49 Compared to prior tracing no significant change DOCTOR: Venkatesh Fagan Interpretating Date/Time 09/04/2016 13:01:29
--- NOTE | 2016-09-04 13:11 | RADRPT ---
EXAM DATE/TIME: 09/04/2016 12:50 [facility] COMPARISON: CHEST SINGLE AP, September 04, 2016, 7:41. CHEST EXPIRATION ONLY, August 18, 2016, 15:20. INDICATIONS : S/P thoracentesis. MEDICAL HISTORY : Hypercholesterolemia. Myocardial infarction. Congestive heart failure. SURGICAL HISTORY : None. ENCOUNTER: Initial ACUITY: 1 day PAIN SCORE: Non-responsive. LOCATION: Bilateral chest FINDINGS: Portable upright AP view of the chest demonstrates improved aeration in the left upper lung zone with residual interstitial opacity. There remains pleural-parenchymal opacity in the inferior left hemith orax. No pneumothorax is identified. Toaevp-s-Pfpm remains present. CONCLUSION: Improved left lung aeration following left thoracentesis. Persistent nonspecific opacity remains pres ent in the inferior left hemithorax. There is no pneumothorax. Scott Latham MD on September 04, 2016 at 13:08 Board Certified Radiologist. This report was verified electronically.
[2016-09-04] MEDS ORDERED: POTASSIUM CHLOR 20 MEQ PREMIX 100 ML IV ONE (13:15)
[2016-09-04 13:27] LABS: BLOOD GAS BASE EXCESS 26.7 mmol/L (-2-2); BLOOD GAS HCO3 53 mmol/L (22-26); BLOOD GAS METHEMOGLOBIN 1.4 % (0-2); BLOOD GAS O2 HGB SATURATION 91 % (90-100); BLOOD GAS OXYGEN CONTENT 14.8 Vol % (12.0-20.0); BLOOD GAS PCO2 65 mmHg (38-42); BLOOD GAS PO2 69 mmHG (61-120); BLOOD GAS TOTAL HGB 11.5 G/DL (12.0-16.0); TEMP CORR TO 98.6
[2016-09-04 13:29] LABS: CRITICAL VALUE YES; DRAW SITE RT RADIAL; NUMBER OF ARTERIAL PUNCTURES 2; OXYGEN DEVICE 3.5L; STAT YES; ULNAR PULSE Y
[2016-09-04] MEDS ORDERED: [UNRECOGNIZED DRUG - CODE] (14:11)
--- NOTE | 2016-09-04 14:25 | RADRPT ---
EXAM DATE/TIME: 09/04/2016 13:56 [facility] COMPARISON: CT BRAIN W/O CONTRAST, October 15, 2009, 12:43. INDICATIONS : Altered mental status. RADIATION DOSE: 40.05 CTDIvol (mGy) MEDICAL HISTORY : Stroke. SURGICAL HISTORY : anuerysm clip ENCOUNTER: Initial ACUITY: 1 day PAIN SCALE: Non-responsive LOCATION: Bilateral head TECHNIQUE: Multiple contiguous axial images were obtained of the head. Using automated exposure control and adj ustment of the mA and/or kV according to patient size, radiation dose was kept as low as reasonably a chievable to obtain optimal diagnostic quality images. FINDINGS: Exam is limited by patient motion. Redemonstration of prior left probably P-comm aneurysm coiling. Sl ightly more prominent encephalomalacic defect in the right frontal high convexities with continued bi lateral mid to lower convexity frontal defects. Hardwick-white matter differentiation is grossly maintain ed. Ventricles are stable in size. No evidence for significant intercurrent intra-axial hemorrhage or gross mass. The basilar cisterns are maintained. Brainstem and cerebellum are grossly unremarkable. Small amount of fluid in the left sphenoid sinus. Many paranasal sinuses and mastoid air cells are cl ear. Calvarium is grossly intact. CONCLUSION: 1. Limited examination due to significant patient motion. 2. No significant change or gross acute intracranial abnormality is noted. 3. Left sphenoid sinusitis. Donato Ibarra MD on September 04, 2016 at 14:17 Board Certified Radiologist. This report was verified electronically.
--- NOTE | 2016-09-04 15:56 | HHI.HP ---
[facility] Raghav Browning MD Admission Diagnosis left-sided pleural effusion/severe hypokalemia Diagnoses: Chief Complaint: sob Travel History International Travel<30 Days: No Contact w/Intl Traveler <30 Da: No Traveled to Known Affected Are: No History of Present Illness This is an unfortunate 66-year-old female patient with history of lung cancer that has been treated with chemotherapy with recent admission 11/18 for left pleural effusion that was drained of 1200 cc. She was also admitted at [facility] for same and had another thoracentesis last week. Patient presented back to the emergency room for increased shortness of breath and disorientation. Patient is unable to provide any information, she is lethargic. Apparently the patient is under hospice services, his son is at the bedside and he has requested that the patient go to the hospice care center. Indicates that the patient is under the care of 2 aides who have been hired to provide basic care. Today, instead of calling the hospice nurses they called EMS. They do not want the patient admitted, they are declining any further care. I spoke to the patient's daughter Beckie as well as she is requesting the same. Patient's POA is her brother 80 who lives out of state and he will be contacted by her son. Patient is a DO NOT RESUSCITATE. Patient was evaluated in the emergency room, x-ray was completed showing again a left pleural effusion. She went to IR for a CT-guided thoracentesis and 1.2 L of fluid was removed. CT of the head was unremarkable. Last Impressions Chest X-Ray 09/04/16 1300 Signed Impressions: Service Date/Time: Sunday, September 04, 2016 12:50 - CONCLUSION: Improved left lung aeration following left thoracentesis. Persistent nonspecific opacity remains present in the inferior left hemithorax. There is no pneumothorax. Scott Latham MD Thoracentesis 09/04/16 0000 Signed Impressions: Service Date/Time: Sunday, September 04, 2016 11:22 - CONCLUSION: Uncomplicated CT-guided thoracentesis. 1.2 L of fluid was removed. Ap Barbosa MD Head CT 09/04/16 0000 Signed Impressions: Service Date/Time: Sunday, September 04, 2016 13:56 - CONCLUSION: 1. Limited examination due to significant patient motion. 2. No significant change or gross acute intracranial abnormality is noted. 3. Left sphenoid sinusitis. Donato Ibarra MD At this time, patient is on oxygen facemask, she awakes to voice but is not really able to provide any information. At this time, patient will remain in the emergency room. I have spoken to the window caser and requested that they call hospice to see if we can get a bed at the hospice care center. Review of Systems ROS Limitations: Clinical Condition, Altered Mental Status, Unresponsive ( opens eyes to voice, unable to provide information ) Past Family Social History Past Medical History 1. Hyperlipidemia. 2. History of chest pain. 3. Congestive heart failure. 4. Lung cancer. 5. Depression. 6. CVA in 2002. 7. COPD. 8. GERD. 9. Urinary frequency. 10. Headaches. 11. Hypertension. 12. Ruptured brain aneurysm. 13. Comatose for 39 days in 2002. 14. [place]. 15. Pleural effusions, with frequent thoracentesis. Last admitted 08/18 for TC of left, 1200 cc drained Past Surgical History 1. Gastric pass. 2. Cerebral . 3. C-sections x2. 4. Bilateral cataract implants. 5. Breast biopsy. 6. Tubal ligation. 7. Frequent left sided thoracentesis Reported Medications Reported Meds & Active Scripts Active Reported Atropine Sulfate 0.8 Mg/2 Ml Syringe Prilosec (Omeprazole Magnesium) 20 Mg Tab Ativan (Lorazepam) 0.5 Mg Tab 0.5 Mg PO Q4H PRN Duoneb (Ipratropium-Albuterol Neb) 0.5-2.5 Mg/3 Ml Neb 1 Nebule INH DAILY [place] (Hydrocodone-Acetaminophen) 5-325 mg Tab 1 Tab PO Q4H PRN Furosemide 20 Mg Tab 20 Mg PO DAILY Aspirin 81 Mg Chew 81 Mg CHEW DAILY Allergies: Coded Allergies: *MDRO Multi-Drug Resistant Organism (Verified Adverse Reaction, Unknown, ESBL, 08/20/16) ESBL (urine) - 08/17/16 Active Ordered Medications Inpatient Medications Acetaminophen/ Hydrocodone Bitart ([place] 5-325 Mg) 1 tab Q4H PRN PO PAIN 1 TO 5; Start 09/04/16 at 11:30 Albuterol/ Ipratropium (Duoneb Neb) 1 ampule Q4HR WHILE AWAKE NEB NEB Last administered on 09/04/16 15:41; Start 09/04/16 at 12:00 Lorazepam (Ativan) 0.5 mg Q4H PRN PO For mild anxiety / dyspnea; Start at 11:30 Morphine Sulfate 4 mg 4 mg Q3H PRN IV PUSH PAIN 6 TO 10; Start 09/04/16 at 11: 45 Pantoprazole Sodium (Protonix) 20 mg DAILY PO ; Start 09/05/16 at 09:00 Potassium Chloride/Sodium Chloride (NS + KCl 40 Meq Inj) 1,000 ml @ 100 mls/hr Q10H IV Last administered on 09/04/16 14:16; Start 09/04/16 at 09:00 Potassium Chloride (KCl 20 Meq Premix Inj) 100 ml @ 50 mls/hr BOLUS ONCE IV Last administered on 09/04/16 14:12; Start 09/04/16 at 13:15; Stop 09/04/16 at 15:14; Status DC Potassium Chloride (KCl) 40 meq ONCE ONCE PO ; Start 09/04/16 at 12:45; Stop at 12:46; Status DC Sodium Chloride 2 ml 2 ml UNSCH PRN IVF FLUSH AFTER USING IV ACCESS; Start at 07:45 Family History Unable to obtain Social History Previous tobacco user, quit in 2002. No alcohol. No illicit drugs. Physical Exam Vital Signs Vital Signs Date Time Temp Pulse Resp B/P Pulse Ox O2 Delivery O2 Flow Rate FiO2 09/04/16 14:09 112 22 110/62 98 Nasal Cannula 3 09/04/16 12:09 104 22 121/72 95 Nasal Cannula 2 09/04/16 12:02 99 09/04/16 10:25 105 22 117/75 95 BiPAP 09/04/16 09:42 94 09/04/16 09:09 115 28 113/76 99 Nasal Cannula 3 09/04/16 07:47 115 28 91 Nasal Cannula 3 09/04/16 07:45 95 Nasal Cannula 2 09/04/16 07:43 95 Nasal Cannula 2 09/04/16 07:38 97.7 55 26 106/76 95 Physical Exam GENERAL: This is a well-nourished, well-developed patient, in no apparent distress. SKIN: No rashes, ecchymoses or lesions. Cool and dry. HEAD: Atraumatic. Normocephalic. No temporal or scalp tenderness. EYES: Pupils equal round and reactive. Extraocular motions intact. No scleral icterus. No injection or drainage. ENT: Nose without bleeding, purulent drainage or septal hematoma. Throat without erythema, tonsillar hypertrophy or exudate. Uvula midline. Airway patent. NECK: Trachea midline. No JVD or lymphadenopathy. Supple, nontender, no meningeal signs. CARDIOVASCULAR: Regular rate and rhythm without murmurs, gallops, or rubs. RESPIRATORY: Coarse rales throughout, expiratory wheezes GASTROINTESTINAL: Abdomen soft, non-tender, nondistended. No hepato-splenomegaly , or palpable masses. No guarding. MUSCULOSKELETAL: Extremities without clubbing, cyanosis, or edema. No joint tenderness, effusion, or edema noted. No calf tenderness. Negative Homans sign bilaterally. NEUROLOGICAL: Awake and alert. Cranial nerves II through XII intact. Motor and sensory grossly within normal limits. Five out of 5 muscle strength in all muscle groups. Normal speech. Laboratory Laboratory Tests Test 09/04/16 09/04/16 09/04/16 09/04/16 07:50 08:00 13:24 14:35 White Blood Count 12.2 Red Blood Count 3.59 Hemoglobin 10.9 Hematocrit 33.7 Mean Corpuscular Volume 93.8 Mean Corpuscular Hemoglobin 30.2 Mean Corpuscular Hemoglobin 32.2 Concent Red Cell Distribution Width 15.7 Platelet Count 113 Mean Platelet Volume 7.8 Neutrophils (%) (Auto) 88.3 Lymphocytes (%) (Auto) 7.2 Monocytes (%) (Auto) 4.4 Eosinophils (%) (Auto) 0.0 Basophils (%) (Auto) 0.1 Neutrophils # (Auto) 10.8 Lymphocytes # (Auto) 0.9 Monocytes # (Auto) 0.5 Eosinophils # (Auto) 0.0 Basophils # (Auto) 0.0 CBC Comment AUTO DIFF Differential Total Cells 100 Counted Neutrophils % (Manual) 83 Band Neutrophils % 5 Lymphocytes % 8 Monocytes % 4 Neutrophils # (Manual) 10.7 Differential Comment FINAL DIFF MANUAL Platelet Estimate LOW Platelet Morphology Comment NORMAL Prothrombin Time 11.3 Prothromb Time International 1.0 Ratio Activated Partial 23.8 Thromboplast Time Sodium Level 127 Potassium Level 2.7 Chloride Level 68 Carbon Dioxide Level GREATER THAN 45.0 Anion Gap 14 Blood Urea Nitrogen 32 Creatinine 0.55 Estimat Glomerular Filtration 111 Rate Random Glucose 89 Calcium Level 7.8 Total Bilirubin 0.7 Aspartate Amino Transf 29 (AST/SGOT) Alanine Aminotransferase 43 (ALT/SGPT) Alkaline Phosphatase 155 Total Creatine Kinase 19 Troponin I 0.02 B-Type Natriuretic Peptide 97 Total Protein 5.6 Albumin 2.1 Blood Gas Puncture Site RT RADIAL RT RADIAL Blood Gas Patient Temperature 98.6 98.6 Blood Gas HCO3 55 53 Blood Gas Base Excess 28.6 26.7 Blood Gas Oxygen Saturation 92 91 Arterial Blood pH 7.52 7.52 Arterial Blood Partial 68 65 Pressure CO2 Arterial Blood Partial 71 69 Pressure O2 Arterial Blood Oxygen Content 14.5 14.8 Arterial Blood 0.9 1.0 Carboxyhemoglobin Arterial Blood Methemoglobin 1.4 1.4 Blood Gas Hemoglobin 11.1 11.5 Oxygen Delivery Device NASAL CANNULA 3.5L Blood Gas Liter Flow 3 Ammonia 15 Result Diagram: 09/04/16 0750 09/04/16 0750 Imaging Last Impressions Chest X-Ray 09/04/16 1300 Signed Impressions: Service Date/Time: Sunday, September 04, 2016 12:50 - CONCLUSION: Improved left lung aeration following left thoracentesis. Persistent nonspecific opacity remains present in the inferior left hemithorax. There is no pneumothorax. Scott Latham MD Thoracentesis 09/04/16 0000 Signed Impressions: Service Date/Time: Sunday, September 04, 2016 11:22 - CONCLUSION: Uncomplicated CT-guided thoracentesis. 1.2 L of fluid was removed. Ap Barbosa MD Head CT 09/04/16 0000 Signed Impressions: Service Date/Time: Sunday, September 04, 2016 13:56 - CONCLUSION: 1. Limited examination due to significant patient motion. 2. No significant change or gross acute intracranial abnormality is noted. 3. Left sphenoid sinusitis. Donato Ibarra MD Assessment and Plan Problem List: (1) Recurrent pleural effusion on left (2) Hx of cancer of lung (3) History of CVA (cerebrovascular accident) (4) Hypokalemia (5) Thrombocytopenia Assessment and Plan Admit to Dr. Sims This is an unfortunate 66-year-old white female with history of lung cancer and previous chemotherapy, has history of recurrent left pleural effusions that have required thoracentesis. Again she presented to the emergency room with increased shortness of breath and disorientation. Patient is under hospice services. Patient underwent CT-guided thoracentesis in intervention radiology, 1.2 L were drained. Plan of care has been discussed with family, patient is terminal and transition to comfort care is appropriate. They are requesting the patient go to [facility], they do not want the patient to be admitted. -Continue with oxygen to keep sats greater than 90% Continue with DuoNeb's as needed -I have discussed pt. with case management and hospice nurse, they will be coming to speak to patient's family and we will arrange a bed at [facility]. -Continue with morphine for pain management Hypokalemia Potassium has been replaced History of CVA Continue with supportive care Thrombocytopenia, likely secondary to malignant process monitor CBC Home medications reviewed, some have been initiated Continue with supportive and comfort care measures Patient will remain in the ER until that his secure at the [facility] Case has been discussed with the patient's son and daughter at length, their questions have been answered in detail. Patient is a DO NOT RESUSCITATE and her wishes will be respected. They both want the patient to go to the [facility] where she has been before. I have requested that the hospice nurse reach out to the patient's power of deputy prosecuting attorney who is her brother and lives out of state. This patient was seen by myself and Dr. Sims, this H&P is written on his behalf Physician Certification 2 Midnight Certification Type: Admission for Inpatient Services Order for Inpatient Services The services are ordered in accordance with Medicare regulations or non- Medicare payer requirements, as applicable. In the case of services not specified as inpatient-only, they are appropriately provided as inpatient services in accordance with the 2-midnight benchmark. Estimated LOS (days): 2 2 days is the estimated time the patient will need to remain in the hospital, assuming treatment plan goals are met and no additional complications. Post-Hospital Plan: Hospice Diamond Kumar Sep 04, 2016 15:56
--- NOTE | 2016-09-04 16:01 | RADRPT ---
EXAM DATE/TIME: 09/04/2016 11:22 INDICATIONS : Left sided pleural effusion. DEVICE(S): 1.) 6 Fr [id number] FLUID: Total volume of 1200 cc of cloudy, red fluid was removed. Fluid was discarded. MEDICAL HISTORY : Carcinoma, lung. Emphysema. Stroke SURGICAL HISTORY : Tubal ligation. ENCOUNTER: Initial ACUITY: 1 day PAIN SCORE: Non-responsive LOCATION: Bilateral chest PROCEDURE: 1. CT guided left thoracentesis. 2. Conscious sedation with continuous EKG and oximetry monitoring. 3. EKG and oximetry remained stable throughout the procedure. The site was prepped in sterile fashion. Full sterile technique was used, including cap, mask, steri le gloves and gown and a large sterile sheet. Hand hygiene and 2% chlorhexidine and/or betadine/alco hol prep was utilized per protocol for cutaneous antisepsis. The skin and subcutaneous tissues were infiltrated with local anesthetic solution. Using automated exposure control and adjustment of the mA and/or kV according to patient size, radiation dose was kept as low as reasonably achievable to obta in optimal diagnostic quality images. With the patient supine on the CT table, bereavement coordinator images were obtained through the chest demonstrating t he left sided pleural effusion. Dermatotomy was made and the prescribed catheter was advanced into t he pleural fluid. The pleural fluid as above was removed from the hemithorax. Post procedural scan show reduction in the amount of fluid with no evidence of pneumothorax. The patient tolerated the procedure well and there were no complications. EKG and oximetry remained s table throughout the procedure. The patient was sent to recovery in stable condition. CONCLUSION: Uncomplicated CT-guided thoracentesis. 1.2 L of fluid was removed. Ap Barbosa MD on September 04, 2016 at 15:57 Board Certified Radiologist. This report was verified electronically.
--- NOTE | 2016-09-04 21:15 | MB ---
cc: BIN[facility] PURCELL DATE OF CONSULTATION 09/02/16 REASON FOR CONSULTATION Pleural effusion. HISTORY OF PRESENT ILLNESS Mrs. Delgado is a 66-year-old female known history of breast cancer post chemotherapy. The patient presents to the emergency room with increasing shortness of breath and a large left pleural effusion. The patient had multiple thoracenteses in the past. The patient was drained while in the emergency room 1200 mL of fluid removed. The patient is unresponsive and cannot relate any history. Children at bedside relate some of the history. The patient is presently DNR status, not to be intubated, mechanically ventilated, comfort measures only to be employed. PAST MEDICAL HISTORY 1. Lung cancer as mentioned above 2. Congestive heart failure, 3. Previous CVA 4. Acid reflux disease, 5. Hypertension. 6. Gastric bypass surgery in the past, 7. Cataract surgeries 8. Multiple thoracenteses MEDICATIONS At home and 1. Ativan 2. Prilosec 3. Atropine 4. DuoNeb 5. [place] 6. Lasix. 7. Aspirin. ALLERGIES None known to medication FAMILY HISTORY Noncontributory. REVIEW OF SYSTEMS 12-point review of systems as per HPI and past history. Otherwise negative. PHYSICAL EXAMINATION VITAL SIGNS: Temperature 98, pulse 100, respirations 20, blood pressure 113/70. HEENT: Exam unremarkable. Eyes without icterus. NECK: Without adenopathy or thyroid enlargement. CHEST: Decreased breath sounds left base. CARDIAC: PMI distant. S1-S2 audible. No murmur or rub. ABDOMEN: Lax, bowel sounds audible. EXTREMITIES: No clubbing, cyanosis or edema. LABORATORY DATA White count 12,000, hemoglobin 10.9, hematocrit of 57, platelet count 113,000. Sodium 127, potassium 2.7, BUN 32, creatinine 0.5. IMAGING STUDIES Chest x-ray post left thoracentesis with improved aeration. IMPRESSION AND PLAN 1. Pleural effusion due to underlying lung cancer 2. DNR status. No intubation, mechanical ventilation, comfort measures only to be employed which were employed. Would continue the patient on oxygen therapy as needed. Bronchodilator therapy as well would be helpful for comfort. The patient's prognosis is extremely poor. Daughter and son at bedside are aware of findings and very well understanding of mother's situation. I do thank you for asking me to partake in Mrs. Delgado's care. MD MARILEE Silverman/ /8:27 PM /9:04 PM
[2016-09-05] MEDS ORDERED: PANTOPRAZOLE SOD 20 MG DELAYED RELEASE TAB PO SCH (09:00)
[2016-09-05] MEDS ORDERED: MISCELLANEOUS NURSING INFORMATION ONE (09:00)
== END 2016-09-05 01:36 | disposition hospice, inpatient (51) | DRG 187 ==
LOC: NEPC 07:30 → NEDA 09:16 → N04B 19:33
PROVIDERS: ADMIT Specialist; ATTEND Specialist
PROC: 0W9B3ZZ Drainage of Left Pleural Cavity, Percutaneous Approach (ICD-10-PCS; principal; 2016-09-04)
DX: J90 Pleural effusion, not elsewhere classified (principal); C34.90 Malignant neoplasm of unspecified part of unspecified bronchus or lung; I50.9 Heart failure, unspecified; I11.0 Hypertensive heart disease with heart failure; D69.59 Other secondary thrombocytopenia; J44.9 Chronic obstructive pulmonary disease, unspecified; E78.5 Hyperlipidemia, unspecified; E87.6 Hypokalemia; K21.9 Gastro-esophageal reflux disease without esophagitis; I25.2 Old myocardial infarction; Z66 Do not resuscitate; F32.9 Major depressive disorder, single episode, unspecified; Z98.84 Bariatric surgery status; Z87.891 Personal history of nicotine dependence; Z51.5 Encounter for palliative care; Z86.73 Personal history of transient ischemic attack (TIA), and cerebral infarction without residual deficits; Z92.21 Personal history of antineoplastic chemotherapy
CPT/HCPCS: 32555; 36600; 70450; 71010; 80053; 82140; 82550; 82805; 83880; 84484; 85007; 85027; 85610; 85730; 93005; 94640; 94664; 96374; C1729; J2270; J3480